=== PATIENT | male | born 1955 | race Caucasian/White ===

== ENCOUNTER 2018-03-22 01:05 | Emergency (ER) | payer MEDICARE, MEDICAID ==
[~2018-03-22] VITALS: Ht 182.9 cm; Wt 72.2 kg
[2018-03-22 01:02] LABS: BASOPHILS % (AUTO) 0.3 % (0-1); EOSINOPHILS # (AUTO) 0.1 X10'3 (0-0.9); EOSINOPHILS % (AUTO) 1.3 % (0-6); HEMATOCRIT 41.3 % (42.0-52.0); HEMOGLOBIN 14.3 g/dl (14.0-17.9); LYMPHOCYTES # (AUTO) 0.2 X10'3 (1.1-4.8); LYMPHOCYTES % (AUTO) 2.5 % (21-51); MEAN CORPUSCULAR HEMOGLOBIN 32.1 PG (27.0-31.0); MEAN CORPUSCULAR HGB CONC 34.5 % (33.0-36.5); MEAN CORPUSCULAR VOLUME 93.1 FL (78-98); MONOCYTES # (AUTO) 0.4 X10'3 (0-0.9); MONOCYTES % (AUTO) 5.8 % (2-12); NEUTROPHILS # (AUTO) 5.9 X10'3 (1.8-7.7); NEUTROPHILS % (AUTO) 90.1 % (42-75); PLATELET COUNT 111 X10'3 (140-440); RED BLOOD COUNT 4.44 X10'6 (4.70-6.10); RED CELL DISTRIBUTION WIDTH 14.7 % (11.5-14.5); WHITE BLOOD COUNT 6.6 X10'3 (4.5-11.0)
[~2018-03-22 01:05] MED LIST: HYDROmorphone 1 mg/ml syringe IV ONE
[2018-03-22 01:09] LABS: INR 1.1 INR
[2018-03-22 01:12] LABS: ALANINE AMINOTRANSFERASE 15 U/L (12-78); ALBUMIN/GLOBULIN RATIO 0.8 (1.1-1.5); ALKALINE PHOSPHATASE 147 IU/L (46-116); ANION GAP 18 (8-16); ASPARTATE AMINO TRANSFERASE 11 U/L (10-37); BLOOD UREA NITROGEN 58 MG/DL (7-18); BUN/CREATININE RATIO 10.8 (5.4-32.0); CALCIUM 9.2 MG/DL (8.5-10.1); CHLORIDE 106 MMOL/L (99-107); CREATININE 5.38 MG/DL (0.60-1.10); GLUCOSE 163 MG/DL (70-104); LIPASE 105 U/L (73-393); SODIUM 140 MMOL/L (135-145); TOTAL CARBON DIOXIDE 15.8 MMOL/L (24-32); TOTAL PROTEIN 6.9 G/DL (6.4-8.2); eGFR 11 ML/MIN
[2018-03-22 01:15] LABS: POTASSIUM 2.9 MMOL/L (3.5-5.1)
[2018-03-22] MEDS ORDERED: potassium Cl 10 mEq/100mL bag IV ONE (01:20)
[2018-03-22] MEDS ORDERED: normal saline 1000ML IV soln IVB ONE (01:30)
[2018-03-22] MEDS ORDERED: ondansetron/PF 4mg/2ml inj IV ONE (01:30)
[2018-03-22] MEDS: potassium 10mEq/100ml NS w/LIDOcaine (10mg/bag) IV SCH ×2 (01:37→02:38)
[2018-03-22] MEDS ORDERED: cefTAZidime inj 2 GM in normal saline 100ml IV soln 100 ML IV STA (01:42)
[2018-03-22] MEDS: morphine 4 MG/ML inj SYRINge IV PRN ×3 (01:52→03:57)
[2018-03-22 02:46] VITALS: BP 131/79
[2018-03-22 02:53] LABS: CLARITY,URINE CLEAR (Clear); COLOR,URINE YELLOW (Yellow); GLUCOSE, URINE NEGATIVE (Neg); KETONES,URINE NEGATIVE (Neg); LEUKOCYTE ESTERASE ,URINE NEGATIVE (Neg); NITRITES, URINE NEGATIVE (Neg); OCCULT BLOOD,URINE SMALL (Neg); PROTEIN,URINE TRACE mg/dl (Neg); UROBILINOGEN,URINE 0.2 E.U/dL (0.2-1.0)
[2018-03-22 02:55] LABS: UA COLLECTION TYPE CLN CATCH MIDSTREAM
[2018-03-22 03:03] LABS: BACTERIA,URINE NONE SEEN /HPF (Neg); RBC,URINE 0-2 /HPF (0-2); SQUAMOUS EPITHELIAL CELL,UR FEW /LPF (FEW); WBC,URINE 0-4 /HPF (0-4)
== END 2018-03-22 06:16 | disposition short-term general hospital (02) ==
LOC: ER 01:06
DX: K80.00 Calculus of gallbladder with acute cholecystitis without obstruction (principal); K50.90 Crohn's disease, unspecified, without complications; N18.9 Chronic kidney disease, unspecified; R10.13 Epigastric pain; R10.11 Right upper quadrant pain; R10.31 Right lower quadrant pain; Z93.3 Colostomy status; Z90.49 Acquired absence of other specified parts of digestive tract; Z98.890 Other specified postprocedural states; Z88.0 Allergy status to penicillin; Z88.2 Allergy status to sulfonamides
CPT/HCPCS: 36415; 74176; 76700; 80053; 81001; 83690; 84145; 85025; 85610; 96361; 96365; 96366; 96375; 96376; 99285; J0713; J1170; J2270; J2405; J3480; 96368; J7030

== ENCOUNTER 2018-12-16 06:52 | Inpatient (IN) | payer MEDICARE, MEDICAID ==
[2018-12-15 12:00] VITALS: BP 103/76
[2018-12-15 12:15] VITALS: BP 114/81
[2018-12-15 12:30] VITALS: BP 125/71
[~2018-12-16] VITALS: Ht 182.9 cm; Wt 71.8 kg
[2018-12-16] VITALS (27 sets, daily range): BP systolic 103–164; BP diastolic 7–94
[~2018-12-16 06:52] MED LIST changes: +ALPR-624 PO; +CALC0.253 PO; -HYDROmorphone 1 mg/ml syringe IV ONE; +LORA2TAB96 PO; +ONDA4TAB12 SL; +OXYC-150 PO; +SODIUM BICARB IV; +TRAZ150T78 PO; +ZOLP10TA5 PO
[2018-12-16] MEDS ORDERED: LIDOcaine 1% (10mg/ml) 2ml vial ONE (07:21)
[2018-12-16] MEDS ORDERED: vancomycin inj 1,500 MG in normal saline 300ml IV soln IV ONE (07:30)
[2018-12-16] MEDS ORDERED: famotidine 20mg tablet PO ONE (07:30)
[2018-12-16] MEDS: ringers solution, lacted 1,000 ML IV SCH ×2 (07:48→23:06)
[2018-12-16] MEDS ORDERED: ringers solution, lacted 1,000 ML IV SCH (07:59)
[2018-12-16] MEDS ORDERED: enalaprilat dihydrate 2.5mg/2ml vial IV PRN (08:00)
[2018-12-16] MEDS ORDERED: morphine 4 MG/ML inj SYRINge IV PRN (08:00)
[2018-12-16] MEDS ORDERED: ondansetron/PF 4mg/2ml inj IV PRN (08:00)
[2018-12-16] MEDS ORDERED: labetalol 20mg/4ml (5mg/ml) syringe IV PRN (08:00)
[2018-12-16] MEDS ORDERED: fentaNYL/PF 50MCG/1 ML 2ML syringe IV PRN (08:00)
[2018-12-16] MEDS ORDERED: glycopyrrolate 0.2mg/ml inj ONE (08:18)
[2018-12-16] MEDS ORDERED: fentaNYL/PF 50MCG/1 ML 2ML syringe ONE (08:18)
[2018-12-16] MEDS ORDERED: midazolam 2 mg/2 ml injection ONE (08:18)
[2018-12-16] MEDS ORDERED: neostigmine methylsulfate 1 MG/ML 10ml vial ONE (08:18)
[2018-12-16] MEDS ORDERED: ondansetron/PF 4mg/2ml inj ONE (08:18)
[2018-12-16] MEDS ORDERED: propofol inj 20 ML IV ONE (08:19)
[2018-12-16] MEDS ORDERED: ATRACURIUM 10 MG/ML 5ML INJECTION IV ONE (08:19)
[2018-12-16] MEDS ORDERED: LIDOcaine 2% (20mg/ml) 5ml vial ONE (08:19)
[2018-12-16] MEDS ORDERED: bacitracin 15gm ointment TP ONE (08:21)
[2018-12-16 08:22] LABS: BASOPHILS % (AUTO) 1.3 % (0-1); EOSINOPHILS # (AUTO) 0.1 X10'3 (0-0.9); EOSINOPHILS % (AUTO) 3.8 % (0-6); HEMATOCRIT 35.3 % (42.0-52.0); HEMOGLOBIN 11.6 g/dl (14.0-17.9); LYMPHOCYTES # (AUTO) 0.4 X10'3 (1.1-4.8); LYMPHOCYTES % (AUTO) 11.7 % (21-51); MEAN CORPUSCULAR HEMOGLOBIN 30.9 PG (27.0-31.0); MEAN CORPUSCULAR HGB CONC 32.9 g/dL (33.0-36.5); MEAN CORPUSCULAR VOLUME 93.8 FL (78-98); MEAN PLATELET VOLUME 8.8 FL (7.4-10.4); MONOCYTES # (AUTO) 0.3 X10'3 (0-0.9); MONOCYTES % (AUTO) 8.2 % (2-12); NEUTROPHILS # (AUTO) 2.7 X10'3 (1.8-7.7); PLATELET COUNT 174 X10'3 (140-440); RED BLOOD COUNT 3.76 X10'6 (4.70-6.10); RED CELL DISTRIBUTION WIDTH 14.7 % (11.5-14.5); WHITE BLOOD COUNT 3.5 X10'3 (4.5-11.0)
[2018-12-16 08:30] LABS: ALANINE AMINOTRANSFERASE 18 U/L (12-78); ALBUMIN 3.4 G/DL (3.4-5.0); ALBUMIN/GLOBULIN RATIO 0.9 (1.1-1.5); ALKALINE PHOSPHATASE 111 IU/L (46-116); ANION GAP 13 (8-16); ASPARTATE AMINO TRANSFERASE 11 U/L (10-37); BILIRUBIN,TOTAL 0.6 MG/DL (0.1-1.0); BLOOD UREA NITROGEN 41 MG/DL (7-18); BUN/CREATININE RATIO 12.3 (5.4-32.0); CALCIUM 8.9 MG/DL (8.5-10.1); CHLORIDE 110 MMOL/L (99-107); CREATININE 3.34 MG/DL (0.60-1.10); GLUCOSE 106 MG/DL (70-104); POTASSIUM 4.4 MMOL/L (3.5-5.1); SODIUM 142 MMOL/L (135-145); TOTAL CARBON DIOXIDE 19.5 MMOL/L (24-32); TOTAL PROTEIN 7.2 G/DL (6.4-8.2); eGFR 19 ML/MIN
[2018-12-16 08:39] LABS: PRE OP PARTIAL THROMB. TIME 26 SECONDS (22-32)
[2018-12-16] MEDS ORDERED: normal saline 1000ml 1,000 ML IV SCH (09:15)
[2018-12-16] MEDS ORDERED: sevoflurane 250ml liquid IH ONE (09:16)
[2018-12-16] MEDS ORDERED: dexamethasone sod phosphate 10mg/ml inj ONE (09:16)
--- NOTE | 2018-12-16 10:03 | NUR ---
Received from OR via surgical bed, accompanied by Anesthesiologist Gustavo and report given by Anesthesiolgist. Pt is alert and responsible to questions, VS stable, 10L O2 at 100%. Patient states pain is 8/10. Wound vac with one black sponge to I&D site at 125 per MD orders. Ostomy site with clean ostomy bag from home/prior surgery. SCDs placed on patient. IVF at 100/hr 20G to left wrist.
[2018-12-16] MEDS: morphine 4 MG/ML inj SYRINge IV PRN ×2 (10:07→10:20)
[2018-12-16] MEDS: fentaNYL/PF 50MCG/1 ML 2ML syringe IV PRN ×2 (10:29→10:37)
--- NOTE | 2018-12-16 10:43 | NUR ---
Spoke with Dr Chen about uncontrolled pain despite 8mg morphine and 100mcg of fentanyl. states okay to give dilaudid per recovery protocol. Will place and follow orders.
[2018-12-16] MEDS ORDERED: HYDROmorphone inj. 0.5 MG/0.5 ML DISP.SYRIN IV PRN ×3 (10:45)
--- NOTE | 2018-12-16 10:48 | NUR ---
Spoke with Dr Rea about dilaudid and pain control, he states he will order dilaudid CADD. Pt in agreement and pleased with plan.
[2018-12-16] MEDS ORDERED: CADD PCA waste documentation MC PRN (10:50)
[2018-12-16] MEDS ORDERED: naloxone 0.4 mg/ml inj IV PRN (10:50)
[2018-12-16] MEDS: HYDROmorphone inj. 0.5 MG/0.5 ML DISP.SYRIN IV PRN ×2 (10:53→11:05)
[2018-12-16] MEDS: HYDROmorphone/NS 1 mg/ml CADD 50 ML IV SCH ×8 (11:12→23:00)
--- NOTE | 2018-12-16 12:00 | NUR ---
pt arrived to floor on hospital bed with all belongings. wound vac set to 125mmHg continuous suction per MD orders; VSS. pt oriented to room and call light.
--- NOTE | 2018-12-16 12:03 | NUR ---
Report called to receiving nurse Flory JACOB. Transferred via surgical bed. Belongings on bed with patient. Special Issues communicated to receiving nurse. SCDs on bed. Pt states pain is down to a 7 but lives at a chronic 6 and states he is pleased with a 7 knowing it will continued to trend down with dilaudid CADD pump. Wound vac remains with no drainage set to 125 at the right upper quadrant. Ostomy site still remains CDI. VS remain stable and pt alert and oreinted, family at bedside.
[2018-12-16] MEDS: Potassium Cl inj 20 MEQ in ringers solution, lacted 1,000 ML IV SCH ×2 (12:41→22:59)
--- NOTE | 2018-12-16 15:00 | NUR ---
Patient in room ES 354. I have received report from and had the opportunity to ask questions and assume patient care. Addendum: 12/16/18 at 1720 by Mitzi Slater RN Patient in room ES 354. I have received report from Ann Marie JACOB and had the opportunity to ask questions and assume patient care.
--- NOTE | 2018-12-16 15:48 | NUR ---
Problems reprioritized. Patient report given, questions answered & plan of care reviewed with Mitzi JACOB.
--- NOTE | 2018-12-16 17:17 | NUR ---
Call to Dr Cooper re: patient c/o pain medication ineffective. New order for 0.6 mg bolus in CADD pump X1.
--- NOTE | 2018-12-16 17:45 | NUR ---
Administered by mookie Richards RN Addendum: 12/16/18 at 1850 by Mitzi Slater RN Amended: Links added.
[2018-12-16] MEDS ORDERED: zolpidem 5mg tablet PO PRN (17:55)
[2018-12-16] MEDS ORDERED: SODIUM BICARBONATE IV SCH ×2 (17:55→18:30)
[2018-12-16] MEDS ORDERED: LORazepam 1 MG tablet PO PRN (17:55)
[2018-12-16] MEDS ORDERED: ondansetron 4mg rapidly disintigrating tab PO PRN (17:55)
--- NOTE | 2018-12-16 18:00 | NUR ---
Problems reprioritized. Patient report given, questions answered & plan of care reviewed with Pat RN.
[2018-12-16] MEDS ORDERED: WATER IV SCH (18:30)
[2018-12-16] MEDS ORDERED: DEXTROSE IV SCH (18:30)
[2018-12-16] MEDS: calcitriol 0.25mcg capsule PO SCH (20:48)
[2018-12-16] MEDS: traZODone 150mg tablet PO SCH (20:48)
[2018-12-17] VITALS: BP 134/78
[2018-12-17] MEDS: HYDROmorphone/NS 1 mg/ml CADD 50 ML IV SCH ×7 (01:00→13:00)
[2018-12-17] MEDS: Potassium Cl inj 20 MEQ in ringers solution, lacted 1,000 ML IV SCH (02:58)
[2018-12-17 04:00] VITALS: BP 124/69
[2018-12-17 07:00] VITALS: BP 146/71
--- NOTE | 2018-12-17 07:02 | NUR ---
Patient in room ES 354. I have received report from Pat RN and had the opportunity to ask questions and assume patient care.
[2018-12-17] MEDS ORDERED: enoxaparin 40mg/0.4ml syringe SQ SCH (08:00)
[2018-12-17 11:00] VITALS: BP 138/71
--- NOTE | 2018-12-17 13:48 | NUR ---
WOUND VAC EDUCATION PROVIDED BY WOUND CARE 1. Patient instructed to call the Wound Center or their Home Health Agency immediately if: * They notice a change in the color or amount of the fluid in the canister. * Their wound looks more red than usual or has a foul smell. * The skin around their wound looks reddened or irritated. * The dressing feels loose or appears to be loose. * They experience any increase or changes in their pain. * The alarm will not turn off. 2. Patient instructed that they should not be disconnected from suction for more than 2 hours at a time. * If they are not able to get the suction back on, they need to remove the dressing and take all of the foam out of the wound. * Then moisten sterile gauze with normal saline and place on/in the wound. * Change the dressing once a day until arrangements have been made to replace the wound vac dressing. 3. Patient instructed to turn the wound vac machine OFF and call 911 or go to the ED immediately if their canister fills rapidly with blood. 4. If any of these occur while in the hospital tell a nurse immediately. Addendum: 12/17/18 at 1348 by Efrain Quintero RN Amended: Links added.
[2018-12-17] MEDS: oxyCODONE/APAP 10/325mg tablet PO PRN ×2 (14:21→19:18)
--- NOTE | 2018-12-17 15:00 | NUR ---
Dietary alert: Pt concerned about amount of K is he receiving at meals given hx CKD IV. Pt has been notified that MD ordered regular/mechanical soft diet. Pt enforces no trouble chewing/swallowing and would like regular textures in addition to renal diet. DANIE d/w RN regarding advancement to renal diet given pt request per surgeon approval. Pt s/p I&D abdominal wound abscess from prior complicated cholecystectomy in [facility] w/ recurrent abscesses to the area per surgeon note. PO 75-100% meals meeting needs so far this admit. K is WNL and receiving KCL/LR drip post-op now d/c'd. sales audit clerk is to f/u tomorrow for additional food preferences. Addendum: 12/17/18 at [address] Amended: Links added.
[2018-12-17] MEDS: levoFLOXACIN-Levaquin 250mg/D5 50 ML IV SCH (15:52)
[2018-12-17] MEDS: HYDROmorphone inj. 0.5 MG/0.5 ML DISP.SYRIN IV PRN ×2 (16:28→21:02)
[2018-12-17 18:00] VITALS: BP 130/80
--- NOTE | 2018-12-17 18:32 | NUR ---
Patient in room ES 354. I have received report from CECIL Rueda and had the opportunity to ask questions and assume patient care. Addendum: 12/17/18 at 1832 by Bernadette Seaman RN Amended: Links added.
--- NOTE | 2018-12-17 18:53 | NUR ---
Problems reprioritized. Patient report given, questions answered & plan of care reviewed with Jessica Tillman RN.
[2018-12-17] MEDS: ALPRAZolam 0.5mg tablet PO PRN (22:45)
[2018-12-17] MEDS: traZODone 150mg tablet PO SCH (22:45)
[2018-12-17] MEDS: calcitriol 0.25mcg capsule PO SCH (22:45)
[2018-12-18] MEDS: oxyCODONE/APAP 10/325mg tablet PO PRN ×5 (00:49→22:47)
[2018-12-18] MEDS: HYDROmorphone inj. 0.5 MG/0.5 ML DISP.SYRIN IV PRN ×6 (04:28→19:21)
--- NOTE | 2018-12-18 06:06 | NUR ---
Problems reprioritized. Patient report given, questions answered & plan of care reviewed with CECIL Groves. Addendum: 12/18/18 at 0606 by Bernadette Seaman RN Amended: Links added.
[2018-12-18 06:30] VITALS: BP 125/76
--- NOTE | 2018-12-18 06:37 | NUR ---
Patient in room ES 354. I have received report from Yvonne Patel and had the opportunity to ask questions and assume patient care.
[2018-12-18] MEDS: levoFLOXACIN-Levaquin 250mg/D5 50 ML IV SCH (07:06)
[2018-12-18] MEDS: enoxaparin 30mg/0.3ml syringe SQ SCH (07:07)
[2018-12-18 11:00] VITALS: BP 139/78
--- NOTE | 2018-12-18 11:11 | NUR ---
WOUND VAC EDUCATION PROVIDED BY WOUND CARE 1. Patient instructed to call the Wound Center or their Home Health Agency immediately if: * They notice a change in the color or amount of the fluid in the canister. * Their wound looks more red than usual or has a foul smell. * The skin around their wound looks reddened or irritated. * The dressing feels loose or appears to be loose. * They experience any increase or changes in their pain. * The alarm will not turn off. 2. Patient instructed that they should not be disconnected from suction for more than 2 hours at a time. * If they are not able to get the suction back on, they need to remove the dressing and take all of the foam out of the wound. * Then moisten sterile gauze with normal saline and place on/in the wound. * Change the dressing once a day until arrangements have been made to replace the wound vac dressing. 3. Patient instructed to turn the wound vac machine OFF and call 911 or go to the ED immediately if their canister fills rapidly with blood. 4. If any of these occur while in the hospital tell a nurse immediately. Addendum: 12/18/18 at 1114 by Sabina Romero RN Amended: Links added.
[2018-12-18 18:00] VITALS: BP 139/80
--- NOTE | 2018-12-18 18:06 | NUR ---
Problems reprioritized. Patient report given, questions answered & plan of care reviewed with
--- NOTE | 2018-12-18 18:08 | NUR ---
Patient in room ES 354. I have received report from CECIL Groves and had the opportunity to ask questions and assume patient care. Addendum: 12/18/18 at 1808 by Bernadette Seaman RN Amended: Links added.
[2018-12-18] MEDS: ondansetron/PF 4mg/2ml inj IV PRN (19:24)
[2018-12-19] VITALS: BP 102/68
[2018-12-19] MEDS: calcitriol 0.25mcg capsule PO SCH ×2 (00:18→21:56)
[2018-12-19] MEDS: traZODone 150mg tablet PO SCH ×2 (00:18→21:56)
[2018-12-19] MEDS: ALPRAZolam 0.5mg tablet PO PRN ×2 (00:20→22:04)
[2018-12-19] MEDS: HYDROmorphone inj. 0.5 MG/0.5 ML DISP.SYRIN IV PRN ×5 (00:23→22:04)
--- NOTE | 2018-12-19 06:50 | NUR ---
Problems reprioritized. Patient report given, questions answered & plan of care reviewed with CECIL Tan. Addendum: 12/19/18 at 0650 by Bernadette Seaman RN Amended: Links added.
--- NOTE | 2018-12-19 06:54 | NUR ---
Patient in room ES 354. I have received report from Jessica Tillman RN and had the opportunity to ask questions and assume patient care.
[2018-12-19 07:00] VITALS: BP 87/55
[2018-12-19] MEDS: levoFLOXACIN-Levaquin 250mg/D5 50 ML IV SCH (07:37)
[2018-12-19] MEDS: enoxaparin 30mg/0.3ml syringe SQ SCH (07:38)
[2018-12-19 08:40] VITALS: BP 89/52
[2018-12-19] MEDS ORDERED: normal saline 500ml IV soln 500 ML IV ONE (08:40)
[2018-12-19] MEDS ORDERED: normal saline 1000ml 1,000 ML IV ONE (08:50)
[2018-12-19 11:00] VITALS: BP 103/64
[2018-12-19] MEDS: oxyCODONE/APAP 10/325mg tablet PO PRN ×2 (11:47→15:55)
[2018-12-19 18:00] VITALS: BP 123/71
--- NOTE | 2018-12-19 18:39 | NUR ---
Patient in room ES 354. I have received report from CECIL Rueda and had the opportunity to ask questions and assume patient care.
--- NOTE | 2018-12-19 18:40 | NUR ---
Problems reprioritized. Patient report given, questions answered & plan of care reviewed with Lyndsay JACOB.
[2018-12-20] VITALS: BP 124/71
[2018-12-20] MEDS: HYDROmorphone inj. 0.5 MG/0.5 ML DISP.SYRIN IV PRN ×4 (03:53→22:15)
--- NOTE | 2018-12-20 06:20 | NUR ---
Problems reprioritized. Patient report given, questions answered & plan of care reviewed with CECIL Rueda.
--- NOTE | 2018-12-20 06:32 | NUR ---
Patient in room ES 354. I have received report from Lyndsay JACOB and had the opportunity to ask questions and assume patient care.
[2018-12-20 07:00] VITALS: BP 104/54
[2018-12-20] MEDS: levoFLOXACIN-Levaquin 250mg/D5 50 ML IV SCH (07:47)
[2018-12-20] MEDS: enoxaparin 30mg/0.3ml syringe SQ SCH (07:51)
[2018-12-20 11:00] VITALS: BP 104/68
[2018-12-20] MEDS: oxyCODONE/APAP 10/325mg tablet PO PRN ×3 (11:19→23:02)
[2018-12-20] MEDS: ondansetron/PF 4mg/2ml inj IV PRN (14:41)
--- NOTE | 2018-12-20 15:52 | NUR ---
Initial: Pt s/p I&D abdominal wound abscess and wound vac placement from prior complicated cholecystectomy in April w/ recurrent abscesses to the area per surgeon note. Hx multiple GI surgeries w/ Ileostomy in place; 400ml output noted. PO 75-100% meals meeting needs. DANIE d/w RN no labs drawn since 12/16; would benefit given Ileostomy. Will continue to monitor. Rec: 1. continue renal diet 2. wt per rx Addendum: 12/20/18 at [address] Amended: Links added.
--- NOTE | 2018-12-20 18:04 | NUR ---
Problems reprioritized. Patient report given, questions answered & plan of care reviewed with Christos JACOB.
--- NOTE | 2018-12-20 18:20 | NUR ---
Patient in room ES 354. I have received report from Marybeth JACOB and had the opportunity to ask questions and assume patient care.
[2018-12-20 20:00] VITALS: BP 139/75
[2018-12-20] MEDS: traZODone 150mg tablet PO SCH (21:55)
[2018-12-20] MEDS: calcitriol 0.25mcg capsule PO SCH (21:55)
[2018-12-21] VITALS: BP 131/88
[2018-12-21] MEDS: traZODone 150mg tablet PO SCH (00:33)
[2018-12-21] MEDS: calcitriol 0.25mcg capsule PO SCH (00:34)
[2018-12-21] MEDS: oxyCODONE/APAP 10/325mg tablet PO PRN ×4 (04:28→19:39)
--- NOTE | 2018-12-21 06:18 | NUR ---
Patient in room ES 354. I have received report from tricia rodas and had the opportunity to ask questions and assume patient care.
--- NOTE | 2018-12-21 06:40 | NUR ---
Problems reprioritized. Patient report given, questions answered & plan of care reviewed with Shelly JACOB.
[2018-12-21 07:00] VITALS: BP 109/64
[2018-12-21] MEDS: levoFLOXACIN-Levaquin 250mg/D5 50 ML IV SCH (07:10)
[2018-12-21] MEDS: HYDROmorphone inj. 0.5 MG/0.5 ML DISP.SYRIN IV PRN (07:11)
[2018-12-21] MEDS: enoxaparin 30mg/0.3ml syringe SQ SCH (07:11)
[2018-12-21 12:07] VITALS: BP 121/70
--- NOTE | 2018-12-21 15:59 | NUR ---
WOUND VAC EDUCATION PROVIDED BY WOUND CARE 1. Patient instructed to call the Wound Center or their Home Health Agency immediately if: * They notice a change in the color or amount of the fluid in the canister. * Their wound looks more red than usual or has a foul smell. * The skin around their wound looks reddened or irritated. * The dressing feels loose or appears to be loose. * They experience any increase or changes in their pain. * The alarm will not turn off. 2. Patient instructed that they should not be disconnected from suction for more than 2 hours at a time. * If they are not able to get the suction back on, they need to remove the dressing and take all of the foam out of the wound. * Then moisten sterile gauze with normal saline and place on/in the wound. * Change the dressing once a day until arrangements have been made to replace the wound vac dressing. 3. Patient instructed to turn the wound vac machine OFF and call 911 or go to the ED immediately if their canister fills rapidly with blood. 4. If any of these occur while in the hospital tell a nurse immediately. Addendum: 12/21/18 at 1559 by Efrain Quintero RN Amended: Links added.
--- NOTE | 2018-12-21 18:15 | NUR ---
Received report from Shelly JACOB, assumed care of patient with Jessica JACOB.
--- NOTE | 2018-12-21 18:16 | NUR ---
Problems reprioritized. Patient report given, questions answered & plan of care reviewed with RUI Cazares RN.
--- NOTE | 2018-12-21 19:00 | NUR ---
Dr. Rea called to confirm patient and son had been given proper education on wound vac. States to DC pt without antibiotics but instruct patient to contact his office in the afternoon tomorrow to check on results. States no pain medication order necessary and to resume his home pain medication regimen.
--- NOTE | 2018-12-21 19:30 | NUR ---
Hooked up home wound vac machine, instructed patient on settings and leak checks. Removed IV from right hand. IV canula intact. Rechecked patient BP upon request. Decreased to 143/95. Patient phoned son to come for pickup. DC instructions reviewed. Patient dressed independently and packed own room. Waiting for son to arrive in room.
[2018-12-21 20:00] VITALS: BP 152/80
[2018-12-21 20:10] VITALS: BP 143/95
--- NOTE | 2018-12-21 20:30 | NUR ---
Son arrived to floor for patient. All belongings and patient wheeled to lobby for DC. Patient DC'd to [employer] private vehicle. Aware he needs to contact Dr. Rea's office tomorrow afternoon for follow up.
[2018-12-22] MEDS ORDERED: levoFLOXACIN 250mg tablet PO SCH (11:00)
== END 2018-12-21 20:40 | disposition home or self-care (01) | DRG 857 ==
LOC: PAS 06:52 → SUR 3N 10:48
PROVIDERS: ADMIT Surgery; ATTEND Surgery
PROC: 0J980ZZ Drainage of Abdomen Subcutaneous Tissue and Fascia, Open Approach (ICD-10-PCS; principal; 2018-12-16 09:16)
DX: T81.41XA Infection following a procedure, superficial incisional surgical site, initial encounter (principal); L02.211 Cutaneous abscess of abdominal wall; K50.90 Crohn's disease, unspecified, without complications; N18.4 Chronic kidney disease, stage 4 (severe); G89.29 Other chronic pain; G47.33 Obstructive sleep apnea (adult) (pediatric); Z88.0 Allergy status to penicillin; Z88.2 Allergy status to sulfonamides; Z88.8 Allergy status to other drugs, medicaments and biological substances; Z85.72 Personal history of non-Hodgkin lymphomas; Z92.21 Personal history of antineoplastic chemotherapy; Z92.3 Personal history of irradiation; Z90.49 Acquired absence of other specified parts of digestive tract
CPT/HCPCS: 36415; 80053; 82948; 85025; 85610; 85730; 87070; 87075; 87081; 93005; A4618; A7000; G0378; J1100; J1170; J1650; J1956; J2001; J2250; J2270; J2405; J2704; J2710; J3010; J3370; J3480; J3490; J7030; J7040; J7120

== ENCOUNTER 2019-01-15 12:27 | Outpatient (CLI) | payer MEDICARE, MEDICAID | END 2019-01-15 23:59 | disposition home or self-care (01) | LOC: 64 CT 12:27 | PROVIDERS: ATTEND Surgery | DX: K80.80 Other cholelithiasis without obstruction (principal); N32.89 Other specified disorders of bladder; N20.0 Calculus of kidney; L02.211 Cutaneous abscess of abdominal wall; R10.819 Abdominal tenderness, unspecified site; R50.9 Fever, unspecified | CPT/HCPCS: 74176 ==